=== PATIENT | male | born 2000 | race Caucasian/White ===

== ENCOUNTER 2021-09-26 22:55 | Emergency (ER) | payer MEDICAID ==
[~2021-09-26] VITALS: Ht 175.3 cm; Wt 63.6 kg
[2021-09-26 23:03] VITALS: BP 118/76
[2021-09-27] MEDS ORDERED: CLIN300C54 PO (01:24)
[2021-09-27] MEDS ORDERED: clindamycin 150mg capsule PO ONE (01:25)
== END 2021-09-27 02:09 | disposition home or self-care (01) ==
LOC: ER 22:56
DX: L03.031 Cellulitis of right toe (principal); Z79.2 Long term (current) use of antibiotics
CPT/HCPCS: 73660; 99283

== ENCOUNTER 2021-11-12 01:48 | Emergency (ER) | payer MEDICAID ==
[~2021-11-12] VITALS: Ht 175.3 cm; Wt 70.0 kg
[2021-11-12 02:19] VITALS: BP 107/98
[2021-11-12] MEDS ORDERED: vancomycin inj 1,000 MG in normal saline 250ml IV soln 250 ML IV ONE (03:15)
[2021-11-12] MEDS ORDERED: normal saline 1000ml 1,000 ML IV ONE (03:15)
[2021-11-12] MEDS ORDERED: vancomycin/NS 1 GM ADD-VANTAGE 250 ML IV ONE (03:24)
[2021-11-12] MEDS ORDERED: iohexol 300mg/ml 100ml inj. ONE (03:26)
[2021-11-12] MEDS ORDERED: clindamycin 300mg/D5W 50mL 50 ML IV ONE (03:30)
[2021-11-12 04:07] LABS: BASOPHILS # (AUTO) 0.1 X10'3 (0-0.2); BASOPHILS % (AUTO) 0.9 % (0-1); EOSINOPHILS # (AUTO) 0.1 X10'3 (0-0.9); EOSINOPHILS % (AUTO) 1.1 % (0-6); HEMOGLOBIN 12.3 g/dl (14.0-17.9); LYMPHOCYTES # (AUTO) 2.6 X10'3 (1.1-4.8); LYMPHOCYTES % (AUTO) 19.8 % (21-51); MEAN CORPUSCULAR HGB CONC 33.4 g/dL (33.0-36.5); MEAN CORPUSCULAR VOLUME 86.8 FL (78-98); MEAN PLATELET VOLUME 6.4 FL (7.4-10.4); MONOCYTES # (AUTO) 1.2 X10'3 (0-0.9); MONOCYTES % (AUTO) 9.2 % (2-12); PLATELET COUNT 469 X10'3 (140-440); RED BLOOD COUNT 4.26 X10'6 (4.70-6.10); RED CELL DISTRIBUTION WIDTH 12.6 % (11.5-14.5)
[2021-11-12 04:11] LABS: CHLORIDE 98 MMOL/L (99-107); GLUCOSE 135 MG/DL (70-104); POTASSIUM 3.7 MMOL/L (3.5-5.1); SODIUM 138 MMOL/L (135-145); TOTAL CARBON DIOXIDE 31.7 MMOL/L (24-32)
[2021-11-12 04:12] LABS: ALANINE AMINOTRANSFERASE 57 U/L (12-78); ALBUMIN 3.2 G/DL (3.4-5.0); ALBUMIN/GLOBULIN RATIO 0.6 (1.1-1.5); ALKALINE PHOSPHATASE 95 IU/L (46-116); ANION GAP 8 (8-16); ASPARTATE AMINO TRANSFERASE 44 U/L (10-37); BILIRUBIN,TOTAL 0.2 MG/DL (0.1-1.0); BLOOD UREA NITROGEN 14 MG/DL (7-18); BUN/CREATININE RATIO 13.9 (5.4-32.0); CREATININE 1.01 MG/DL (0.60-1.10); MAGNESIUM 2.1 MG/DL (1.5-2.4); TOTAL PROTEIN 8.5 G/DL (6.4-8.2); eGFR > 90 ML/MIN
[2021-11-12] MEDS ORDERED: TETanus/Pertussis (Acell)/Diphther VAC/PF (Tdap-Adult) 0.5ml syringe IMVAC ONE (04:45)
[2021-11-12] MEDS ORDERED: DOXY100C77 PO (04:45)
[2021-11-12] MEDS ORDERED: CEPH250T PO (04:45)
[2021-11-12] MEDS ORDERED: bacitracin 15gm ointment TP ONE (04:45)
[2021-11-12] MEDS ORDERED: ONDA4TAB6 PO (04:46)
[2021-11-12] MEDS ORDERED: FAMO-128 PO (05:07)
== END 2021-11-12 06:53 | disposition home or self-care (01) ==
LOC: ER 01:49
DX: L02.512 Cutaneous abscess of left hand (principal)
CPT/HCPCS: 10060; 36415; 73201; 80053; 83605; 83735; 84145; 85025; 87040; 90471; 90715; 93005; 96365; 96366; 96367; 99285; J3370; J3490; J7030; Q9967

== ENCOUNTER 2022-03-04 10:56 | Emergency (ER) | payer MEDICAID ==
[~2022-03-04] VITALS: Ht 175.3 cm; Wt 71.0 kg
[~2022-03-04 10:56] MED LIST: FAMO-128 PO; ONDA4TAB6 PO
[2022-03-04 11:08] VITALS: BP 112/59
[2022-03-04] MEDS ORDERED: bacitracin 15gm ointment TP ONE (12:20)
== END 2022-03-04 12:32 | disposition home or self-care (01) ==
LOC: ER 10:56
DX: S80.922A Unspecified superficial injury of left lower leg, initial encounter (principal); L02.416 Cutaneous abscess of left lower limb; R12 Heartburn; F17.200 Nicotine dependence, unspecified, uncomplicated; F15.90 Other stimulant use, unspecified, uncomplicated; Z60.2 Problems related to living alone; Z59.00 Homelessness unspecified; Z79.899 Other long term (current) drug therapy; X58.XXXA Exposure to other specified factors, initial encounter; Y93.89 Activity, other specified; Y92.89 Other specified places as the place of occurrence of the external cause; Y99.8 Other external cause status
CPT/HCPCS: 99282